=== PATIENT | female | born 1950 | race Caucasian/White ===

== ENCOUNTER 2021-06-05 14:11 | Outpatient (CLI) | payer MEDICARE, BC ==
[2021-06-05 15:57] LABS: BASOPHILS % (AUTO) 0.4 %; EOSINOPHILS # (AUTO) 0.1 10^3/uL (0.0-0.7); EOSINOPHILS % (AUTO) 1.1 %; HCT - HEMATOCRIT 39.8 % (37.0-47.0); HGB - HEMOGLOBIN 14.1 g/dL (12.0-16.0); LYMPHOCYTES # (AUTO) 1.7 10^3/uL (1.5-3.5); LYMPHOCYTES % (AUTO) 23.2 %; MEAN CORPUSCULAR HEMOGLOBIN 33.1 pg (27.0-31.0); MEAN CORPUSCULAR HGB CONC 35.4 g/dL (32.0-36.0); MEAN CORPUSCULAR VOLUME 93.4 fL (81.0-99.0); MEAN PLATELET VOLUME 9.4 fL (7.9-10.8); MONOCYTES # (AUTO) 0.5 10^3/uL (0.0-1.0); MONOCYTES % (AUTO) 6.5 %; NEUTROPHILS % (AUTO) 68.5 %; PLT - PLATELET COUNT 220 10^3/uL (130-450); RED BLOOD COUNT 4.26 10^6/uL (4.20-5.40); RED CELL DISTRIBUTION WIDTH 12.8 % (12.0-15.0); WHITE BLOOD COUNT 7.2 x10^3/uL (4.8-10.8)
[2021-06-05 16:07] LABS: POTASSIUM 3.8 mmol/L (3.5-5.0)
[2021-06-05 16:49] LABS: BILIRUBIN,URINE NEGATIVE (NEGATIVE); GLUCOSE, URINE (UA) NEGATIVE (NEGATIVE); KETONES,URINE (UA) TRACE mg/dL (NEGATIVE); LEUKOCYTE ESTERASE, URINE NEGATIVE (NEGATIVE); NITRITE,URINE NEGATIVE (NEGATIVE); OCCULT BLOOD,URINE NEGATIVE (NEGATIVE); PH,URINE 5.5 PH (5.0-7.5); PROTEIN,URINE NEGATIVE (NEGATIVE); UROBILINOGEN,URINE 0.2 (NORMAL) E.U./dL (NORMAL)
[2021-06-05 17:02] LABS: BACTERIA,URINE None Seen /HPF (None Seen); CLARITY,URINE HAZY (CLEAR); CRYSTALS,URINE 3-5 Uric Acid /LPF; RBC,URINE 0-5 /HPF (0-5); SQUAMOUS EPITHELIAL CELL,UR RARE Squamous (<= Few)
[2021-06-05 21:26] LABS: ESTIMATED AVERAGE GLUCOSE 105 mg/dL (70-100); HEMOGLOBIN A1c% 5.3 % (4.27-6.07)
== END 2021-06-05 14:12 | disposition home or self-care (01) ==
LOC: RT 14:11
PROVIDERS: ATTEND Orthopaedic Surgery
DX: Z01.818 Encounter for other preprocedural examination (principal); R73.9 Hyperglycemia, unspecified; N39.0 Urinary tract infection, site not specified
CPT/HCPCS: 36415; 80048; 81001; 83036; 85025; 87086; 93005

== ENCOUNTER 2021-10-30 14:39 | Outpatient (CLI) | payer MEDICARE, BC ==
[2021-10-30 15:28] LABS: THYROID STIMULATING HORMONE 20.69 uIU/mL (0.34-5.60)
[2021-10-30 16:02] LABS: FREE T4 (FREE THYROXINE) 0.75 ng/dL (0.58-1.64)
--- NOTE | 2021-10-30 20:26 | DEXA Report ---
PROCEDURE: Dexa Spine and/or Hip INDICATIONS: OSTEOPOROSIS TECHNIQUE: Dual energy x-ray absorptiometry (DXA) was performed on a [employer] System. Regions measur ed are the AP Spine, femoral neck, and if needed forearm. COMPARISON: None. FINDINGS: Lumbar Spine: Bone Mineral Density 1.480 g/cm/cm,T score 2.5. Left Hip: Bone Mineral Density 1.071 g/cm/cm,T score 0.5. Left Femoral Neck: Bone Mineral Density 1.098 g/cm/cm, T score 0.4. (T score greater or equal to -1.0: NORMAL) (T score from -1.1 to -2.4: OSTEOPENIA) (T score less than or equal to -2.5 to: OSTEOPOROSIS) Impression: Normal bone mineral density. Patients with diagnosis of osteoporosis or osteopenia should have regular bone mineral density assess ment. For those eligible for Medicare, routine testing is allowed once every 2 years. Testing frequ ency can be increased for patients who have rapidly progressing disease or for those who are receivin g medical therapy to restore bone mass. Reviewed by: Garland Gipson MD on 10/30/2021 8:24 PM PDT Approved by: Garland Gipson MD on 10/30/2021 8:24 PM PDT Station ID: [id number]
== END 2021-10-30 14:40 | disposition home or self-care (01) ==
LOC: DI 14:39
PROVIDERS: ATTEND Nurse Practitioner
DX: E03.9 Hypothyroidism, unspecified (principal); Z78.0 Asymptomatic menopausal state
CPT/HCPCS: 36415; 84439; 84443

== ENCOUNTER 2021-12-20 11:14 | Outpatient (CLI) | payer MEDICARE, BC ==
[2021-12-20 11:55] LABS: THYROID STIMULATING HORMONE 11.89 uIU/mL (0.34-5.60)
[2021-12-20 11:56] LABS: FREE T3 3.56 pg/mL (2.5-3.9)
[2021-12-20 11:57] LABS: FREE T4 (FREE THYROXINE) 0.94 ng/dL (0.58-1.64)
== END 2021-12-20 11:15 | disposition home or self-care (01) ==
LOC: LAB 11:14
PROVIDERS: ATTEND Nurse Practitioner
DX: E03.9 Hypothyroidism, unspecified (principal); Z79.899 Other long term (current) drug therapy
CPT/HCPCS: 36415; 84439; 84443; 84481

== ENCOUNTER 2022-03-15 09:33 | Outpatient (CLI) | payer MEDICARE, BC ==
[2022-03-15 10:15] LABS: ALBUMIN 4.2 g/dL (3.2-5.5); ALBUMIN/GLOBULIN RATIO 0.8 (1.0-2.2); ALKALINE PHOSPHATASE 63 IU/L (42-121); ALT ALANINE AMINOTRANSFERASE 34 IU/L (10-60); AST ASPARTATE AMINOTRANSFERASE 27 IU/L (10-42); BILIRUBIN,TOTAL 2.6 mg/dL (0.2-1.0); BUN - BLOOD UREA NITROGEN 18 mg/dL (6-20); CALCIUM 9.3 mg/dL (8.5-10.3); CARBON DIOXIDE - CO2 23 mmol/L (21-32); CHLORIDE 106 mmol/L (101-111); CHOL/HDL RATIO 4.4 (<4.4); CHOLESTEROL 202 mg/dL; CREATININE 0.9 mg/dL (0.4-1.0); GFR - MDRD 62 (>89); GLUCOSE 114 mg/dL (70-100); HDL CHOLESTEROL 46 mg/dL; LDL CHOLESTEROL,CALCULATED 135 mg/dL; LDL/HDL RATIO 2.9 (<4.4); POTASSIUM 3.6 mmol/L (3.5-5.0); SODIUM 139 mmol/L (135-145); TOTAL PROTEIN 9.3 g/dL (6.7-8.2); TRIGLYCERIDES 103 mg/dL; VLDL CHOLESTEROL 21 mg/dL
[2022-03-15 10:23] LABS: CREATININE,URINE 243.3 mg/dL; MICROALBUM/CREATININE RATIO,UR 70.7 ug/mg (<30.0); MICROALBUMIN,URINE 17.2 mg/dL (0-300.0)
[2022-03-15 10:25] LABS: THYROID STIMULATING HORMONE 10.23 uIU/mL (0.34-5.60)
[2022-03-15 10:26] LABS: FREE T3 2.9 pg/mL (2.5-3.9)
[2022-03-15 10:27] LABS: FREE T4 (FREE THYROXINE) 0.97 ng/dL (0.58-1.64)
[2022-03-16 07:09] LABS: HCV AB <0.1 s/co ratio (0.0-0.9)
== END 2022-03-15 09:34 | disposition home or self-care (01) ==
LOC: LAB 09:33
PROVIDERS: ATTEND Nurse Practitioner
DX: E03.9 Hypothyroidism, unspecified (principal); I10 Essential (primary) hypertension; E78.2 Mixed hyperlipidemia; Z12.11 Encounter for screening for malignant neoplasm of colon; Z79.899 Other long term (current) drug therapy; Z11.59 Encounter for screening for other viral diseases
CPT/HCPCS: 36415; 80053; 80061; 82043; 82570; 83721; 84439; 84443; 84481; 86803

== ENCOUNTER 2022-04-04 11:42 | Outpatient (CLI) | payer MEDICARE, BC | END 2022-04-04 11:43 | disposition home or self-care (01) | LOC: LAB 11:42 | PROVIDERS: ATTEND Nurse Practitioner | DX: E03.9 Hypothyroidism, unspecified (principal) | CPT/HCPCS: 36415; 84443 ==

== ENCOUNTER 2022-04-11 15:38 | Outpatient (CLI) | payer MEDICARE, BC ==
[2022-04-11 15:56] LABS: ABSOLUTE RETICS # AUTO 0.075 10^6/uL (0.020-0.110); BASOPHILS % (AUTO) 0.5 %; EOSINOPHILS # (AUTO) 0.1 10^3/uL (0.0-0.7); EOSINOPHILS % (AUTO) 0.9 %; HCT - HEMATOCRIT 42.6 % (37.0-47.0); HGB - HEMOGLOBIN 14.5 g/dL (12.0-16.0); LYMPHOCYTES # (AUTO) 2.2 10^3/uL (1.5-3.5); LYMPHOCYTES % (AUTO) 28.3 %; MEAN CORPUSCULAR HEMOGLOBIN 32.7 pg (27.0-31.0); MEAN CORPUSCULAR VOLUME 95.9 fL (81.0-99.0); MEAN PLATELET VOLUME 9.9 fL (7.9-10.8); MONOCYTES # (AUTO) 0.4 10^3/uL (0.0-1.0); MONOCYTES % (AUTO) 5.7 %; NEUTROPHILS % (AUTO) 64.3 %; PLT - PLATELET COUNT 217 10^3/uL (130-450); RED BLOOD COUNT 4.44 10^6/uL (4.20-5.40); RED CELL DISTRIBUTION WIDTH 12.6 % (12.0-15.0); RETICULOCYTE COUNT % (AUTO) 1.69 % (0.5-2.3); WHITE BLOOD COUNT 7.8 x10^3/uL (4.8-10.8)
[2022-04-11 16:30] LABS: CALCIUM 9.9 mg/dL (8.5-10.3); POTASSIUM 3.9 mmol/L (3.5-5.0)
[2022-04-11 16:33] LABS: FERRITIN 136.9 ng/mL (11.0-306.8)
[2022-04-11 16:36] LABS: FOLATE 17.64 ng/mL (5.90 - >24.8)
== END 2022-04-11 15:39 | disposition home or self-care (01) ==
LOC: LAB 15:38
PROVIDERS: ATTEND Nurse Practitioner
DX: C49.9 Malignant neoplasm of connective and soft tissue, unspecified (principal); C90.01 Multiple myeloma in remission; D64.9 Anemia, unspecified
CPT/HCPCS: 36415; 80048; 82607; 82728; 82746; 83540; 84466; 85025; 85045

== ENCOUNTER 2022-05-23 14:09 | Outpatient (CLI) | payer MEDICARE, BC ==
[2022-05-23 14:55] LABS: THYROID STIMULATING HORMONE 2.39 uIU/mL (0.34-5.60)
[2022-05-23 14:57] LABS: FREE T3 3.21 pg/mL (2.5-3.9)
[2022-05-23 14:58] LABS: FREE T4 (FREE THYROXINE) 1.09 ng/dL (0.58-1.64)
== END 2022-05-23 14:10 | disposition home or self-care (01) ==
LOC: LAB 14:09
PROVIDERS: ATTEND Nurse Practitioner
DX: E03.9 Hypothyroidism, unspecified (principal); R53.83 Other fatigue; G47.00 Insomnia, unspecified; R41.840 Attention and concentration deficit; E83.42 Hypomagnesemia
CPT/HCPCS: 36415; 83735; 84439; 84443; 84481; 86376

== ENCOUNTER 2022-08-20 09:10 | Outpatient (CLI) | payer MEDICARE, BC ==
[2022-08-20 10:07] LABS: THYROID STIMULATING HORMONE 3.68 uIU/mL (0.34-5.60)
[2022-08-20 10:10] LABS: FREE T3 2.73 pg/mL (2.5-3.9)
[2022-08-20 10:11] LABS: FREE T4 (FREE THYROXINE) 1.04 ng/dL (0.58-1.64)
[2022-08-21 14:09] LABS: THYROID PEROXIDASE (TPO) AB >600 IU/mL (0-34)
[2022-08-23 16:08] LABS: REVERSE T3 SERUM 18.2 ng/dL (.)
== END 2022-08-20 09:11 | disposition home or self-care (01) ==
LOC: LAB 09:10
PROVIDERS: ATTEND Nurse Practitioner
DX: E06.3 Autoimmune thyroiditis (principal); E03.9 Hypothyroidism, unspecified
CPT/HCPCS: 36415; 82306; 82533; 84439; 84443; 84445; 84481; 84482; 86376

== ENCOUNTER 2023-08-06 08:37 | Outpatient (CLI) | payer MEDICARE, BC ==
[2023-08-06 08:54] LABS: BASOPHILS % (AUTO) 0.4 %; EOSINOPHILS # (AUTO) 0.1 10^3/uL (0.0-0.7); EOSINOPHILS % (AUTO) 1.4 %; HGB - HEMOGLOBIN 14.9 g/dL (12.0-16.0); LYMPHOCYTES # (AUTO) 2.5 10^3/uL (1.5-3.5); LYMPHOCYTES % (AUTO) 34.3 %; MEAN CORPUSCULAR HEMOGLOBIN 30.8 pg (27.0-31.0); MEAN CORPUSCULAR HGB CONC 33.1 g/dL (32.0-36.0); MEAN PLATELET VOLUME 9.5 fL (7.9-10.8); MONOCYTES # (AUTO) 0.6 10^3/uL (0.0-1.0); MONOCYTES % (AUTO) 7.7 %; NEUTROPHILS # (AUTO) 4.1 10^3/uL (1.5-6.6); NEUTROPHILS % (AUTO) 55.9 %; PLT - PLATELET COUNT 243 10^3/uL (130-450); RED BLOOD COUNT 4.84 10^6/uL (4.20-5.40); RED CELL DISTRIBUTION WIDTH 13.1 % (12.0-15.0); WHITE BLOOD COUNT 7.3 x10^3/uL (4.8-10.8)
[2023-08-06 09:08] LABS: ALBUMIN 4.2 g/dL (3.2-5.5); ALBUMIN/GLOBULIN RATIO 0.9 (1.0-2.2); ALKALINE PHOSPHATASE 52 IU/L (42-121); ALT ALANINE AMINOTRANSFERASE 37 IU/L (10-60); AST ASPARTATE AMINOTRANSFERASE 27 IU/L (10-42); BILIRUBIN,TOTAL 1.5 mg/dL (0.2-1.0); BUN - BLOOD UREA NITROGEN 17 mg/dL (6-20); CALCIUM 9.7 mg/dL (8.5-10.3); CARBON DIOXIDE - CO2 25 mmol/L (21-32); CHLORIDE 103 mmol/L (101-111); CHOLESTEROL 186 mg/dL; CREATININE 1.1 mg/dL (0.6-1.3); GFR - MDRD 49 (>89); GLUCOSE 112 mg/dL (74-104); HDL CHOLESTEROL 47 mg/dL; LDL CHOLESTEROL,CALCULATED 119 mg/dL; LDL/HDL RATIO 2.5 (<4.4); POTASSIUM 3.9 mmol/L (3.5-4.5); SODIUM 136 mmol/L (135-145); TOTAL PROTEIN 8.7 g/dL (6.4-8.9); TRIGLYCERIDES 101 mg/dL (48-352); VLDL CHOLESTEROL 20 mg/dL
[2023-08-06 09:21] LABS: THYROID STIMULATING HORMONE 12.28 uIU/mL (0.34-5.60)
== END 2023-08-06 08:38 | disposition home or self-care (01) ==
LOC: LAB 08:37
PROVIDERS: ATTEND Nurse Practitioner
DX: I10 Essential (primary) hypertension (principal); E06.3 Autoimmune thyroiditis; C90.01 Multiple myeloma in remission
CPT/HCPCS: 36415; 80053; 80061; 83721; 84439; 84443; 84481; 85025

== ENCOUNTER 2023-08-06 08:49 | Outpatient (CLI) | payer MEDICARE, BC ==
--- NOTE | 2023-08-12 10:53 | Mammography Report ---
UNILATERAL LEFT DIGITAL SCREENING MAMMOGRAM 3D/2D WITH EXAGGERATED CC: 08/06/2023 CLINICAL: Routine screening. Personal history of right breast cancer. Comparison is made to exams dated: 06/21/2022 breast MRI - [facility], 12/21/2019 mammogram, 019 mammogram, 04/03/2018 mammogram, 02/13/2018 mammogram, and 02/11/2017 mammogram - Outside facility. There are scattered areas of fibroglandular density in the left breast (category b / 25%-50% glandula r tissue). No significant masses, calcifications, or other findings are seen in the breast. There has been no significant interval change. IMPRESSION: NEGATIVE There is no mammographic evidence of malignancy. A 1 year screening mammogram is recommended. This exam was interpreted at Station ID: [id number]. NOTE: For mammograms, a report in lay terms will be sent to the patient. Approximately 15% of breast malignancies will not be visualized mammographically. In the management of a palpable breast mass, a negative mammogram must not discourage biopsy of a clinically suspicious lesion. Electronically Signed By: Soha melchor/[email or web address]:08/11/2023 13:10:33 letter sent: No_Letter ACR BI-RADS Category 1: Negative [id number] PARENCHYMAL PATTERN: (A) - The breast(s) demonstrate(s) scattered fibroglandular densities. BI-RADS CATEGORY: (1) - 1 RECOMMENDATION: (ANNUAL) - Recommend routine annual screening mammography. [id number] 1 year screening LATERALITY: (B)
== END 2023-08-06 08:50 | disposition home or self-care (01) ==
LOC: DI 08:49
PROVIDERS: ATTEND Nurse Practitioner
DX: Z12.31 Encounter for screening mammogram for malignant neoplasm of breast (principal); Z85.3 Personal history of malignant neoplasm of breast; R92.322 Mammographic fibroglandular density, left breast

== ENCOUNTER 2023-10-02 13:30 | Outpatient (CLI) | payer MEDICARE, BC | END 2023-10-02 13:31 | disposition home or self-care (01) | LOC: LAB 13:30 | PROVIDERS: ATTEND Nurse Practitioner | DX: E06.3 Autoimmune thyroiditis (principal); E03.9 Hypothyroidism, unspecified | CPT/HCPCS: 36415; 84443 ==

== ENCOUNTER 2023-10-13 13:33 | Outpatient (CLI) | payer MEDICARE, BC ==
[2023-10-13 14:26] LABS: THYROID STIMULATING HORMONE 4.69 uIU/mL (0.34-5.60)
[2023-10-14 20:08] LABS: THYROGLOBULIN ANTIBODY 3.8 IU/mL (0.0-0.9); THYROID PEROXIDASE (TPO) AB >600 IU/mL (0-34)
== END 2023-10-13 13:34 | disposition home or self-care (01) ==
LOC: LAB 13:33
PROVIDERS: ATTEND Nurse Practitioner
DX: E06.3 Autoimmune thyroiditis (principal); E03.9 Hypothyroidism, unspecified
CPT/HCPCS: 36415; 84439; 84443; 84481; 84482; 86376; 86800